=== PATIENT | female | born 2005 | race Hispanic/Latino ===

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

== ENCOUNTER 2024-01-27 17:08 | Emergency (ER) | payer MEDICAID ==
[~2024-01-27] VITALS: Ht 160 cm; Wt 87.5 kg
[~2024-01-27 17:08] MED LIST changes: +POLY17PO4 PO
--- NOTE | 2024-01-27 18:32 | ERN ---
General Chief Complaint: Abdominal Pain Stated Complaint: SOB,LIGHT HEADED,LOWER ABDOMINAL PAIN Time Seen by MD: 17:13 Time Seen by Midlevel: 17:13 Source: patient History of Present Illness Initial Comments Patient is a 19-year-old female with a past medical history of asthma presenting to the emergency department with multiple complaints. She states that for the last three days she has been having shortness for breath along with elevated blood pressure readings at home. In the past she has been told that her blood pressure has been elevated however she was never seen her primary care doctor for this. Her other complaint is his she developed suprapubic abdominal cramping today. Denies dysuria or hematuria. She states her last menstrual cycle was on December 28, 2023 but there is a possibility of . Allergies: Coded Allergies: No Known Drug Allergies (Unverified Allergy, Unknown, 01/04/19) Home Meds Active Scripts Polyethylene Glycol 3350 (Miralax) 17 Gram Powd.pack, 17 GM PO DAILY for 7 Days, #7 PACK Prov:ROMINA SAVAGE MD 12/15/23 Ibuprofen (Ibuprofen) 600 Mg Tablet, 600 MG PO Q6H PRN for PAIN, #30 TAB Prov:ABE FELDER 11/23/23 Cephalexin Monohydrate (Keflex) 500 Mg Cap, 500 MG PO QID for 7 Days, #28 CAP Prov:CRISTAL GUNTER V ELECTRICAL INSTRUMENT TECHNICIAN 11/11/22 Ibuprofen (Ibuprofen) 600 Mg Tablet, 600 MG PO Q8H PRN for PAIN for 10 Days, #30 TAB Prov:NERI ARREOLA MD 06/18/22 D-Methorphan Hb/P-Epd HCl/Bpm (Bromfed Dm Cough Syrup) 118 Ml Syrup, 10 ML PO QID for cough, #120 ML Prov:ADELINE CARRINGTON MD 01/13/22 Ibuprofen (Ibuprofen) 600 Mg Tablet, 600 MG PO Q6H for fever, #30 TAB Prov:ADELINE CARRINGTON MD 01/13/22 Acetaminophen (Acetaminophen) 500 Mg Tablet, 1000 MG PO QID for fever, #50 TAB Prov:ADELINE CARRINGTON MD 01/13/22 Naproxen (Naprosyn) 500 Mg Tablet, 500 MG PO BIDPC for 5 Days, #10 TAB 0 Refills Prov:NEETA SNIDER 11/18/21 Past Medical History Past Medical History: Other Medical History Other: GASTRITIS Past Surgical History: None Social History Social History: Negative, Lives with family Female( History) History: Not Applicable LMP: Dec 23, 2023 : 2 Para: 1 Aborts: 0 ROS Dictation CONSTITUTIONAL: Negative except for HPI HEAD/FACE: Negative except for HPI EENT: Negative except for HPI RESPIRATORY: Negative except for HPI GASTROINTESTINAL/ABDOMINAL: Negative except for HPI GENITOURINARY: Negative except for HPI MUSCULOSKELETAL: Negative except for HPI INTEGUMENTARY: Negative except for HPI NEUROLOGICAL/PSYCH: Negative except for HPI HEMATOLOGIC/LYMPHATIC: Negative except for HPI All Systems Negative, Except as noted above. 13 point review of systems assessed and all negative except for above. Physical Exam Physical Exam Dictation Vital Signs reviewed General Appearance: Alert, oriented x 3, no acute distress, well developed, nourished. Head and Face: non-traumatic. Eyes: PERRL, pink conjunctivas, eyelid no trauma, anterior chamber with arcus senilis. Ears: Pinnas intact and no signs of trauma or erythema ear canals clear and no discharge TM no erythema Nose: No discharge, no bleeding. Oropharynx: Mouth normal, tongue pink, pharynx clear,no erythema, tonsils no exudates, no abscesses noted, mucous membrane moist Neck: Supple, non-tender, no thyromegaly, no masses, no JVD, no bruits Breast:Deferred Chest:No tenderness, no crepitus, no paradoxical movement, no retractions Lungs:Clear, well-ventilated, symmetric, no rales, no wheezing, no rhonchi, no stridor, good breath sounds bilaterally Heart: Regular rate, regular rhythm, no murmur, no gallops Vascular: no peripheral edema, Abdomen: Soft, positive bowel sounds, nondistended, no guarding, nontender, no rebound, no masses no hepatomegaly, no splenomegaly, no Navarro's sign, no hernias. Rectal: Deferred Genital: Deferred Neurological: Normal speech, motor function intact, sensory function intact Musculoskeletal: Neck nontender, full range of motion, back nontender, full range of motion, Extremities: nontender, full range of motion Skin: Color pink, dry, no turgor, no rash, no lacerations, no abrasions, no contusions. Lymphatic: Deferred Results Laboratory and Microbiology Lab and Micro Result Laboratory Tests Test 01/27/24 16:35 01/27/24 19:23 Urine Color LIGHT-YELLOW (YELLOW) Urine Appearance CLEAR (CLEAR) Urine pH 6.0 (5.0-8.0) Urine Specific [place] 1.025 (1.001-1.031) Urine Protein NEGATIVE mg/dL (NEGATIVE) Urine Glucose (UA) NEGATIVE mg/dL (NEGATIVE) Urine Ketones NEGATIVE mg/dL (NEGATIVE) Urine Occult Blood NEGATIVE (NEGATIVE) Urine Nitrate NEGATIVE (NEGATIVE) Urine Bilirubin NEGATIVE mg/dL (NEGATIVE) Urine Urobilinogen 2.0 mg/dL (0.2-1.0) H Urine Leukocyte Esterase NEGATIVE [place]/uL Urine RBC 0-1 /HPF (0-1) Urine WBC 0-1 /HPF (0-1) Urine Squamous Epithelial Cells FEW /HPF (0-2) Urine Bacteria RARE /HPF (None Seen) White Blood Count 9.5 K/uL (4.8-10.8) Red Blood Count 4.89 MIL/uL (4.00-5.50) Hemoglobin 14.1 g/dL (12.0-16.0) Hematocrit 41.8 % (36-48) Mean Corpuscular Volume 85.5 fL (80-100) Mean Corpuscular Hemoglobin 28.8 pg (27.0-33.0) Mean Corpuscular Hemoglobin Concent 33.7 g/dL (32.0-36.0) Red Cell Distribution Width 13.5 % (11.0-15.5) Platelet Count 305 K/uL (130-400) Mean Platelet Volume 10.7 fL (7.5-10.5) H Immature Granulocyte % (Auto) 0.3 % (0-1) Neutrophils (%) (Auto) 62.6 % (40.0-77.0) Lymphocytes (%) (Auto) 29.1 % (21.0-51.0) Monocytes (%) (Auto) 6.3 % (3.0-13.0) Eosinophils (%) (Auto) 1.2 % (0.0-8.0) Basophils (%) (Auto) 0.5 % (0.0-5.0) Neutrophils # (Auto) 6.0 K/uL (1.8-7.7) Lymphocytes # (Auto) 2.8 K/uL (1.0-4.8) Monocytes # (Auto) 0.6 K/uL (0.1-1.0) Eosinophils # (Auto) 0.11 K/uL (0.00-0.70) Basophils # (Auto) 0.05 K/uL (0.00-0.20) Absolute Immature Granulocyte (auto 0.03 K/uL (0-1) Nucleated Red Blood Cells 0.0 % (0.0-0.19) Sodium Level 141 mmol/L (136-145) Potassium Level 4.1 mmol/L (3.5-5.1) Chloride Level 105 mmol/L (101-111) Carbon Dioxide Level 28 mmol/L (21-32) Blood Urea Nitrogen 8 mg/dL (7-18) Creatinine 0.9 mg/dL (0.5-1.0) Glomerular Filtration Rate Calc 94 mL/min (>90) Random Glucose 100 mg/dL (70-105) Total Calcium 8.9 mg/dL (8.5-10.1) Human Chorionic Gonadotropin, Quant 38 mIU/mL (0-5) H Serum Test, Qualitative POSITIVE (NEGATIVE) H Labs Reviewed?: Yes MDM MDM: Patient is a 19-year-old female with a past medical history of asthma presenting to the emergency department with multiple complaints. She states that for the last three days she has been having shortness for breath along with elevated blood pressure readings at home. In the past she has been told that her blood pressure has been elevated however she was never seen her primary care doctor for this. Her other complaint is his she developed suprapubic abdominal cramping today. Denies dysuria or hematuria. She states her last menstrual cycle was on December 28, 2023 but there is a possibility of . On physical examination patient is in no acute distress. Her vital signs are stable. Patient is afebrile and nontoxic appearing. Her abdomen is nontender. Her blood work is stable. HCG quant is 38. Given that we had a positive test a pelvic ultrasound was performed which reveals no intrauterine gestation however, I believe this is due to an early . There is a small amount of trace fluid in the cul-de-sac. This may be nonspecific or may be related to an early ectopic however on physical examination patient is not having any vaginal bleeding or abdominal pain. I discussed at length with the patient the results of her blood work and her ultrasound. I advised that she needs to follow up with an OBGYN in the next 24-48 hours. Patient states that she was able to follow up with her OBGYN tomorrow. I advised that if she were to develop any abdominal pain or vaginal bleeding she was to return to the ER for further evaluation. A copy of her ultrasound report was provided to the patient. Differential diagnosis: 1st trimester , electrolyte abnormality, dehydration There are no social concerns with this patient. Prescription drug management Prescriptions will include: None Medical management and examination interpretation discussions were had by me with other qualified healthcare professionals as indicated for the patient's care. ED Course Orders Procedure Category Date Status Time Cbc With Differential LAB 01/27/24 Complete 17:36 Basic Metabolic Panel LAB 01/27/24 Complete 17:36 Testing, LAB 01/27/24 Complete Serum Hcg 17:36 Urinalysis Profile LAB 01/27/24 Complete 17:36 Hcg,Quantitative LAB 01/27/24 Complete 19:48 Us Ob <14 Weeks US 01/27/24 Resulted 19:48 Vital Signs Date Time Temp Pulse Resp B/P (MAP) Pulse Ox O2 Delivery O2 Flow Rate FiO2 01/27/24 18:36 98.8 92 18 142/88 99 Room Air* 0 21 01/27/24 17:52 99.1 106 20 157/92 99 [place] [address] IMAGING REPORT Signed PATIENT: ROB CLEMONS MR#: [id number] : 2005 SEX: F AGE: 19 LOCATION: [facility] ORDER 48 STATUS: REG ER REPORT#: [id number] SERVICE 47 REASON: positive test ORDERING PHYSICIAN: BILLY CLEMONS PROCEDURE: OB <14 - US OB <14 WEEKS US OB <14 WEEKS HISTORY: positive test COMPARISON: None FINDINGS: Uterus measures 6.9 cm length with a 1.5 mm endometrial thickness. There is no identified intrauterine gestation. The ovaries are unremarkable in size and echogenicity and vascularity. There is a trace of free fluid in the cul-de-sac. IMPRESSION: There is no identified intrauterine gestation in this patient with positive test. DICTATED BY: BELLA BISHOP DO DATE: 01/27/242145 ELECTRONICALLY SIGNED BY: BELLA BISHOP DO DATE: 01/27/242148 DX & DISP Disposition: Discharge Departure Impression: Primary Impression: Positive test Condition: Stable Additional Instructions: Your blood work today is unremarkable. You had a positive test today in the emergency department. Your hCG quant is softly positive at 38. A pelvic ultrasound was performed which shows no identified intrauterine gestation. This most likely represents an early . However, your ultrasound also showed a trace amount of free fluid in the cul-de-sac. This can be nonspecific but may also represent an ectopic . You will need to follow up with an OBGYN in the next 24-48 hours. You will need a repeat hCG and a repeat ultrasound. If you develop sharp abdominal pain, heavy vaginal bleeding, or any new or worsening symptoms you need to report to the emergency department for further evaluation. Schedule a follow up with your OB as soon as possible. Referrals: SELF,REFERRAL (PCP) Time of Disposition: 22:08 I have reviewed the case, and I agree with, Diagnosis and Plan I performed the substantive portion of the visit. I have reviewed and personally made and approve the management plan that is documented in the note by myself or the MCKENNA. I acknowledge for responsibility for the patient's management plan. BILLY CLEMONS Jan 27, 2024 18:32
[2024-01-27 18:47] LABS: APPEARANCE,URINE CLEAR (CLEAR); BILIRUBIN,URINE NEGATIVE (NEGATIVE); COLOR,URINE LIGHT-YELLOW (YELLOW); GLUCOSE, URINE (UA) NEGATIVE (NEGATIVE); KETONES,URINE NEGATIVE (NEGATIVE); LEUKOCYTE ESTERASE ,URINE NEGATIVE Leu/uL (NEGATIVE); NITRATE,URINE NEGATIVE (NEGATIVE); OCCULT BLOOD,URINE NEGATIVE (NEGATIVE); PROTEIN,URINE NEGATIVE (NEGATIVE)
[2024-01-27 18:49] LABS: ADD UA MICROSCOPIC YES
[2024-01-27 18:50] LABS: BACTERIA,URINE RARE /HPF (None Seen); MUCUS,URINE RARE LPF (None Seen); RBC,URINE 0-1 /HPF (0-1); SQUAMOUS EPITHELIAL CELL,UR FEW /HPF (0-2); WBC,URINE 0-1 /HPF (0-1)
[2024-01-27 19:29] LABS: BASOPHILS # (AUTO) 0.05 K/uL (0.00-0.20); BASOPHILS % (AUTO) 0.5 % (0.0-5.0); EOSINOPHILS # (AUTO) 0.11 K/uL (0.00-0.70); EOSINOPHILS % (AUTO) 1.2 % (0.0-8.0); HEMATOCRIT 41.8 % (36-48); IMMATURE GRANULOCYTE ABSOLUTE 0.03 K/uL (0-1); LYMPHOCYTES # (AUTO) 2.8 K/uL (1.0-4.8); LYMPHOCYTES % (AUTO) 29.1 % (21.0-51.0); MEAN CORPUSCULAR HEMOGLOBIN 28.8 pg (27.0-33.0); MEAN CORPUSCULAR HGB CONC 33.7 g/dL (32.0-36.0); MEAN CORPUSCULAR VOLUME 85.5 fL (80-100); MONOCYTES # (AUTO) 0.6 K/uL (0.1-1.0); MONOCYTES % (AUTO) 6.3 % (3.0-13.0); NEUTROPHILS % (AUTO) 62.6 % (40.0-77.0); PLATELET COUNT (AUTO) 305 K/uL (130-400); RED BLOOD CELL COUNT(AUTO) 4.89 MIL/uL (4.00-5.50); RED CELL DISTRIBUTION WIDTH 13.5 % (11.0-15.5); WHITE BLOOD COUNT (AUTO) 9.5 K/uL (4.8-10.8)
[2024-01-27 19:40] LABS: CREATININE 0.9 mg/dL (0.5-1.0); POTASSIUM 4.1 mmol/L (3.5-5.1)
--- NOTE | 2024-01-27 21:49 | HMCIMG ---
US OB <14 WEEKS HISTORY: positive test COMPARISON: None FINDINGS: Uterus measures 6.9 cm length with a 1.5 mm endometrial thickness. There is no identified intrauterine gestation. The ovaries are unremarkable in size and echogenicity and vascularity. There is a trace of free fluid in the cul-de-sac. IMPRESSION: There is no identified intrauterine gestation in this patient with positive test.
[2024-01-27 22:22] VITALS: BP 138/80; PULSE 88; RESP 18; TEMP 98.8; O2SAT 99
== END 2024-01-27 22:25 | disposition home or self-care (01) ==
LOC: EDH 17:08
DX: Z32.01 Encounter for pregnancy test, result positive (principal); J45.909 Unspecified asthma, uncomplicated; R10.2 Pelvic and perineal pain; Z79.899 Other long term (current) drug therapy
CPT/HCPCS: 36415; 76801; 80048; 81001; 84702; 84703; 85025; 99284

== ENCOUNTER 2024-01-29 20:20 | Emergency (ER) | payer MEDICAID ==
[~2024-01-29] VITALS: Ht 160 cm; Wt 86.7 kg
--- NOTE | 2024-01-29 20:22 | NUR ---
REPORT TO LUPE SANCHEZ
--- NOTE | 2024-01-29 20:24 | NUR ---
UA CUP PROVIDED
--- NOTE | 2024-01-29 20:44 | ERN ---
ED Note History of Present Illness Stated Complaint: ABD PAIN, UA PAIN Chief Complaint: Abdominal Pain in Time Seen by MD: 20:22 Time Seen by Midlevel: 20:22 Dictation: The patient is a 19-year-old female with no known medical history who presents to the emergency department with complaints of left lower abdominal pain onset four days ago associated with nausea. Patient reports she is but unsure how many weeks. Reports last menstrual period was 12/28/2023. Patient denies any vaginal bleeding or discharge, denies fevers, vomiting, urinary discomfort. Patient reports she was seen here two days ago and was discharged but continues with the discomfort. . Patient of Dr. Lancaster Allergies: Coded Allergies: No Known Drug Allergies (Unverified Allergy, Unknown, 01/04/19) Home Meds Active Scripts Polyethylene Glycol 3350 (Miralax) 17 Gram Powd.pack, 17 GM PO DAILY for 7 Days, #7 PACK Prov:ROMINA SAVAGE MD 12/15/23 Ibuprofen (Ibuprofen) 600 Mg Tablet, 600 MG PO Q6H PRN for PAIN, #30 TAB Prov:ABE FELDER 11/23/23 Cephalexin Monohydrate (Keflex) 500 Mg Cap, 500 MG PO QID for 7 Days, #28 CAP Prov:CRISTAL GUNTER 11/11/22 Ibuprofen (Ibuprofen) 600 Mg Tablet, 600 MG PO Q8H PRN for PAIN for 10 Days, #30 TAB Prov:NERI ARREOLA MD 06/18/22 D-Methorphan Hb/P-Epd HCl/Bpm (Bromfed Dm Cough Syrup) 118 Ml Syrup, 10 ML PO QID for cough, #120 ML Prov:ADELINE CARRINGTON MD 01/13/22 Ibuprofen (Ibuprofen) 600 Mg Tablet, 600 MG PO Q6H for fever, #30 TAB Prov:ADELINE CARRINGTON MD 01/13/22 Acetaminophen (Acetaminophen) 500 Mg Tablet, 1000 MG PO QID for fever, #50 TAB Prov:ADELINE CARRINGTON MD 01/13/22 Naproxen (Naprosyn) 500 Mg Tablet, 500 MG PO BIDPC for 5 Days, #10 TAB 0 Refills Prov:NEETA SNIDER 11/18/21 Past Medical History Past Medical History: Other Additional Past Medical Hx: GASTRITIS Surgical History: None Social History: Negative, Lives with family History: Not Applicable LMP: Dec 28, 2023 : 2 Para: 1 Aborts: 0 RN Note Reviewed/Agreed w/PFSH: Yes Review of System Dictation Constitutional: Negative for fever,chills, and weight loss Eyes: Negative for injury, pain,redness, and discharge ENT: Negative for injury,pain or swelling Cardiovascular: Negative for chest pain, palpitations, and edema Respiratory: Negative for shortness of breath, cough, and wheezing, Abdomen/GI: Negative for vomiting, diarrhea, and constipation. Positive for lower abdominal pain, nausea Back: Negative for injury and pain : Negative for injury, bleeding and discharge MS/Extremity: Negative for injury and deformity Skin: Negative for rash, and discoloration Neuro: Negative for headache, weakness, numbness, tingling, and seizure Psych: Negative for suicide ideation, homicidal ideation, and hallucinations Initial Vital Sign VS Vital Signs Date Time Temp Pulse Resp B/P (MAP) Pulse Ox O2 Delivery O2 Flow Rate FiO2 01/29/24 20:21 97.5 93 20 143/93 100 Room Air 01/29/24 20:53 0 21 Physical Exam Dictation Vital Signs reviewed General Appearance: Alert, oriented x 3, no acute distress, well developed, nourished. Head and Face: non-traumatic. Eyes: PERRL, pink conjunctivas, eyelid no trauma, anterior chamber with arcus senilis. Ears: Pinnas intact and no signs of trauma or erythema ear canals clear and no discharge TM no erythema Nose: No discharge, no bleeding. Oropharynx: Mouth normal, tongue pink. pharynx clear,no erythema, tonsils no exudates, no abscesses noted, mucous membrane moist Neck: Supple, non-tender, no thyromegaly, no masses, no JVD, no bruits Breast:Deferred Chest:No tenderness, no crepitus, no paradoxical movement, no retractions Lungs:Clear, well-ventilated, symmetric, no rales, no wheezing, no rhonchi, no stridor, good breath sounds bilaterally Heart: Regular rate, regular rhythm, no murmur, no gallops Vascular: no peripheral edema, Abdomen: Soft, positive bowel sounds, nondistended, no guarding, nontender, no rebound, no masses no hepatomegaly, no splenomegaly, no Navarro's sign, no hernias. Rectal: Deferred Genital: Deferred Neurological: Normal speech, motor function intact, sensory function intact Musculoskeletal: Neck nontender, full range of motion, back nontender, full range of motion, Extremities: nontender, full range of motion Skin: Color pink, dry, no turgor, no rash, no lacerations, no abrasions, no contusions. Lymphatic: Deferred Results (Laboratory/Radiology) Laboratory/Radiology Laboratory Tests Test 01/29/24 20:40 01/29/24 20:42 Urine Color LIGHT-YELLOW (YELLOW) Urine Appearance CLOUDY (CLEAR) H Urine pH 6.0 (5.0-8.0) Urine Specific [place] 1.017 (1.001-1.031) Urine Protein NEGATIVE mg/dL (NEGATIVE) Urine Glucose (UA) NEGATIVE mg/dL (NEGATIVE) Urine Ketones NEGATIVE mg/dL (NEGATIVE) Urine Occult Blood NEGATIVE (NEGATIVE) Urine Nitrate NEGATIVE (NEGATIVE) Urine Bilirubin NEGATIVE mg/dL (NEGATIVE) Urine Urobilinogen 0.2 mg/dL (0.2-1.0) Urine Leukocyte Esterase NEGATIVE [place]/uL Urine RBC 0-1 /HPF (0-1) Urine WBC 2-5 /HPF (0-1) H Urine Squamous Epithelial Cells MANY /HPF (0-2) Urine Bacteria None /HPF (None Seen) White Blood Count 9.6 K/uL (4.8-10.8) Red Blood Count 4.99 MIL/uL (4.00-5.50) Hemoglobin 14.4 g/dL (12.0-16.0) Hematocrit 42.9 % (36-48) Mean Corpuscular Volume 86.0 fL (80-100) Mean Corpuscular Hemoglobin 28.9 pg (27.0-33.0) Mean Corpuscular Hemoglobin Concent 33.6 g/dL (32.0-36.0) Red Cell Distribution Width 13.4 % (11.0-15.5) Platelet Count 301 K/uL (130-400) Mean Platelet Volume 10.7 fL (7.5-10.5) H Immature Granulocyte % (Auto) 0.2 % (0-1) Neutrophils (%) (Auto) 58.0 % (40.0-77.0) Lymphocytes (%) (Auto) 33.1 % (21.0-51.0) Monocytes (%) (Auto) 7.3 % (3.0-13.0) Eosinophils (%) (Auto) 0.9 % (0.0-8.0) Basophils (%) (Auto) 0.5 % (0.0-5.0) Neutrophils # (Auto) 5.6 K/uL (1.8-7.7) Lymphocytes # (Auto) 3.2 K/uL (1.0-4.8) Monocytes # (Auto) 0.7 K/uL (0.1-1.0) Eosinophils # (Auto) 0.09 K/uL (0.00-0.70) Basophils # (Auto) 0.05 K/uL (0.00-0.20) Absolute Immature Granulocyte (auto 0.02 K/uL (0-1) Nucleated Red Blood Cells 0.0 % (0.0-0.19) Sodium Level 137 mmol/L (136-145) Potassium Level 3.7 mmol/L (3.5-5.1) Chloride Level 101 mmol/L (101-111) Carbon Dioxide Level 26 mmol/L (21-32) Blood Urea Nitrogen 7 mg/dL (7-18) Creatinine 0.8 mg/dL (0.5-1.0) Glomerular Filtration Rate Calc 108 mL/min (>90) Random Glucose 85 mg/dL (70-105) Total Calcium 9.1 mg/dL (8.5-10.1) Human Chorionic Gonadotropin, Quant 129 mIU/mL (0-5) H REASON: R/O ECTOPIC . PAIN LEFT LOWER QUADRANT ORDERING PHYSICIAN: JUDITH GOLD MD PROCEDURE: OB <14 - US OB <14 WEEKS US OB <14 WEEKS HISTORY: PAIN LEFT LOWER QUADRANT COMPARISON: None FINDINGS: There is a anteverted uterus that measures 8.6 cm length with a 8 mm endometrial thickness. There is no identified intrauterine gestation. The ovaries are unremarkable in size and echogenicity and vascularity. There are no abnormal Mass or free fluid. IMPRESSION: Anteverted uterus. Study is otherwise unremarkable. There is no identified intrauterine gestation. Labs Reviewed?: Yes ED Course ED Course Orders Procedure Category Date Status Time Cbc With Differential LAB 01/29/24 Complete 20:27 Basic Metabolic Panel LAB 01/29/24 Complete 20:27 Hcg,Quantitative LAB 01/29/24 Complete 20:27 Us Ob <14 Weeks US 01/29/24 Resulted 20:27 Urinalysis Profile LAB 01/29/24 Complete 20:29 0.9%Nacl 1000ml (Ns PHA 01/29/24 Complete 1000ml) 20:30 Ondansetron 4mg Inj PHA 01/29/24 Complete (Zofran 4mg Inj) 20:30 Acetaminophen 500mg PHA 01/29/24 Complete Tab (Tylenol 500mg T 20:30 Type And Screen BBK 01/29/24 Complete 20:38 Current Medications Medications (Trade) Dose Ordered Sig/Harper Route PRN Reason Start Time Stop Time Status Last Admin Dose Admin Acetaminophen (TYLenol 500MG TAB) 1,000 mg ONCE ONCE PO 01/29/24 20:30 01/29/24 20:31 DC 01/29/24 20:46 Ondansetron HCl (zoFRAN 4MG INJ) 4 mg ONCE ONCE IVP 01/29/24 20:30 01/29/24 20:31 DC 01/29/24 20:46 Sodium Chloride 1,000 ml @ 0 mls/hr ONCE ONCE IV 01/29/24 20:30 01/29/24 20:31 DC 01/29/24 20:46 Vital Signs Date Time Temp Pulse Resp B/P (MAP) Pulse Ox O2 Delivery O2 Flow Rate FiO2 01/29/24 21:23 76 16 144/72 98 Room Air* 0 21 01/29/24 20:53 98.8 75 20 155/96 98 Room Air* 0 21 01/29/24 20:21 97.5 93 20 143/93 100 Room Air Medical Decision Making MDM The patient is a 19-year-old female with no known medical history who presents to the emergency department with complaints of left lower abdominal pain onset four days ago associated with nausea. Patient reports she is but unsure how many weeks. Reports last menstrual period was 12/28/2023. Patient denies any vaginal bleeding or discharge, denies fevers, vomiting, urinary discomfort. Patient reports she was seen here two days ago and was discharged but continues with the discomfort. . Patient of Dr. Lancaster Differential diagnosis: , urinary tract infection, abdominal pain in , electrolyte imbalance, ectopic CBC showed no leukocytosis, no anemia, no electrolyte imbalance, normal renal function, HCG 129 trending up, urinalysis unremarkable. Ob ultrasound revealed anteverted uterus, no identified intrauterine gestation. Might be due to early . Patient continues in no distress. No vaginal bleeding. Patient instructed to follow up with Dr. Lancaster Reports she has an appointment next week. Advised patient to call to make a sooner appointment. Need for hospitalization: Patient does not meet criteria for hospitalization. There are no social concerns with this patient. DX & DISP Disposition: Discharge Departure Impression: Primary Impression: Abdominal pain Additional Impression: Positive test Condition: Stable Additional Instructions: Please follow up with as soon as possible. Please return to ER if symptoms worsen FOLLOW-UP WITH PRIMARY CARE PROVIDER IN 1 TO 2 DAYS. TAKE MEDICATIONS DIRECTED HERE IN THE EMERGENCY ROOM. OKAY TO CONTINUE HOME MEDICATIONS UNLESS OTHERWISE DISCUSSED DURING YOUR VISIT IN THE EMERGENCY ROOM TODAY. RETURN TO YOUR NEAREST EMERGENCY ROOM IF SYMPTOMS WORSEN OR IF THERE IS NO IMPROVEMENT. CALL 911 IF YOU NEED IMMEDIATE ASSISTANCE. TAKE TYLENOL [id number] NEEDED AND IF NO CONTRAINDICATIONS ARE PRESENT. INCREASE ORAL HYDRATION. A WOUND CULTURE OR URINE CULTURE WAS ORDERED HERE IN THE EMERGENCY ROOM DEPARTMENT PLEASE FOLLOW-UP WITH PRIMARY CARE PROVIDER AND ADVISE THEM TO GET REPEAT PORTS FROM OUR FACILITY. IF YOU HAD ANY JENNIFER WRAP/SPLINTS THAT WERE APPLIED HERE, PLEASE DO NOT REMOVE THEM UNTIL YOU SEE YOUR PRIMARY CARE OR SPECIALTY. Referrals: SELF,REFERRAL (PCP) Time of Disposition: 21:45 I have reviewed the case, and I agree with, Diagnosis and Plan YOLETTE PEÑAP Jan 29, 2024 20:44
[2024-01-29] MEDS: ondanSETRON 4MG INJ IVP ONE (20:46)
[2024-01-29] MEDS: acetaMINOPHEN 500 MG TABLET PO ONE (20:46)
[2024-01-29] MEDS: 0.9%NACL 1000ML 1,000 ML IV ONE (20:46)
[2024-01-29 20:50] LABS: BASOPHILS # (AUTO) 0.05 K/uL (0.00-0.20); BASOPHILS % (AUTO) 0.5 % (0.0-5.0); EOSINOPHILS # (AUTO) 0.09 K/uL (0.00-0.70); EOSINOPHILS % (AUTO) 0.9 % (0.0-8.0); HEMATOCRIT 42.9 % (36-48); IMMATURE GRANULOCYTE ABSOLUTE 0.02 K/uL (0-1); LYMPHOCYTES # (AUTO) 3.2 K/uL (1.0-4.8); LYMPHOCYTES % (AUTO) 33.1 % (21.0-51.0); MEAN CORPUSCULAR HEMOGLOBIN 28.9 pg (27.0-33.0); MEAN CORPUSCULAR HGB CONC 33.6 g/dL (32.0-36.0); MONOCYTES # (AUTO) 0.7 K/uL (0.1-1.0); MONOCYTES % (AUTO) 7.3 % (3.0-13.0); NEUTROPHILS # (AUTO) 5.6 K/uL (1.8-7.7); PLATELET COUNT (AUTO) 301 K/uL (130-400); RED BLOOD CELL COUNT(AUTO) 4.99 MIL/uL (4.00-5.50); RED CELL DISTRIBUTION WIDTH 13.4 % (11.0-15.5); WHITE BLOOD COUNT (AUTO) 9.6 K/uL (4.8-10.8)
[2024-01-29 20:53] VITALS: TEMP 98.8
[2024-01-29 20:58] LABS: CREATININE 0.8 mg/dL (0.5-1.0); POTASSIUM 3.7 mmol/L (3.5-5.1)
[2024-01-29 21:00] LABS: ADD UA MICROSCOPIC YES; APPEARANCE,URINE CLOUDY (CLEAR); BILIRUBIN,URINE NEGATIVE (NEGATIVE); COLOR,URINE LIGHT-YELLOW (YELLOW); GLUCOSE, URINE (UA) NEGATIVE (NEGATIVE); KETONES,URINE NEGATIVE (NEGATIVE); LEUKOCYTE ESTERASE ,URINE NEGATIVE Leu/uL (NEGATIVE); NITRATE,URINE NEGATIVE (NEGATIVE); OCCULT BLOOD,URINE NEGATIVE (NEGATIVE); PROTEIN,URINE NEGATIVE (NEGATIVE); UROBILINOGEN,URINE 0.2 mg/dL (0.2-1.0)
[2024-01-29 21:09] LABS: MUCUS,URINE RARE LPF (None Seen); RBC,URINE 0-1 /HPF (0-1); SQUAMOUS EPITHELIAL CELL,UR MANY /HPF (0-2)
[2024-01-29 21:23] VITALS: BP 144/72; PULSE 76; RESP 16; O2SAT 98
--- NOTE | 2024-01-29 21:29 | HMCIMG ---
US OB <14 WEEKS HISTORY: PAIN LEFT LOWER QUADRANT COMPARISON: None FINDINGS: There is a anteverted uterus that measures 8.6 cm length with a 8 mm endometrial thickness. There is no identified intrauterine gestation. The ovaries are unremarkable in size and echogenicity and vascularity. There are no abnormal Mass or free fluid. IMPRESSION: Anteverted uterus. Study is otherwise unremarkable. There is no identified intrauterine gestation.
== END 2024-01-29 22:02 | disposition home or self-care (01) ==
LOC: EDH 20:20
DX: O26.891 Other specified pregnancy related conditions, first trimester (principal); R10.30 Lower abdominal pain, unspecified; R10.2 Pelvic and perineal pain; Z3A.00 Weeks of gestation of pregnancy not specified
CPT/HCPCS: 99285; 96374; 76801; 96361; 80048; 84702; 85025; 86850; 86900; 86901; 81001; 36415; J7030; J2405

== ENCOUNTER 2024-02-03 20:15 | Emergency (ER) | payer MEDICAID ==
[~2024-02-03] VITALS: Ht 160 cm; Wt 88.5 kg
[2024-02-03 20:32] LABS: ADD UA MICROSCOPIC YES; APPEARANCE,URINE CLOUDY (CLEAR); BILIRUBIN,URINE NEGATIVE (NEGATIVE); COLOR,URINE LIGHT-YELLOW (YELLOW); GLUCOSE, URINE (UA) NEGATIVE (NEGATIVE); KETONES,URINE NEGATIVE (NEGATIVE); LEUKOCYTE ESTERASE ,URINE NEGATIVE Leu/uL (NEGATIVE); NITRATE,URINE NEGATIVE (NEGATIVE); OCCULT BLOOD,URINE NEGATIVE (NEGATIVE); PROTEIN,URINE NEGATIVE (NEGATIVE); UROBILINOGEN,URINE 0.2 mg/dL (0.2-1.0)
[2024-02-03 20:35] LABS: BACTERIA,URINE RARE /HPF (None Seen); MUCUS,URINE RARE LPF (None Seen); SQUAMOUS EPITHELIAL CELL,UR MOD /HPF (0-2); YEAST,URINE BUDDING RARE /HPF (None Seen)
[2024-02-03 20:42] LABS: BASOPHILS # (AUTO) 0.05 K/uL (0.00-0.20); BASOPHILS % (AUTO) 0.6 % (0.0-5.0); EOSINOPHILS # (AUTO) 0.09 K/uL (0.00-0.70); EOSINOPHILS % (AUTO) 1.1 % (0.0-8.0); HEMATOCRIT 40.3 % (36-48); IMMATURE GRANULOCYTE ABSOLUTE 0.02 K/uL (0-1); LYMPHOCYTES # (AUTO) 2.8 K/uL (1.0-4.8); LYMPHOCYTES % (AUTO) 32.9 % (21.0-51.0); MEAN CORPUSCULAR HEMOGLOBIN 28.7 pg (27.0-33.0); MEAN CORPUSCULAR HGB CONC 33.7 g/dL (32.0-36.0); MONOCYTES # (AUTO) 0.6 K/uL (0.1-1.0); MONOCYTES % (AUTO) 7.1 % (3.0-13.0); NEUTROPHILS # (AUTO) 4.9 K/uL (1.8-7.7); NEUTROPHILS % (AUTO) 58.1 % (40.0-77.0); PLATELET COUNT (AUTO) 297 K/uL (130-400); RED BLOOD CELL COUNT(AUTO) 4.74 MIL/uL (4.00-5.50); RED CELL DISTRIBUTION WIDTH 13.5 % (11.0-15.5); WHITE BLOOD COUNT (AUTO) 8.4 K/uL (4.8-10.8)
[2024-02-03] MEDS: 0.9%NACL 1000ML 1,000 ML IV ONE (20:44)
[2024-02-03] MEDS: acetaMINOPHEN 500 MG TABLET PO ONE (20:50)
[2024-02-03 20:52] LABS: CREATININE 0.9 mg/dL (0.5-1.0); POTASSIUM 3.6 mmol/L (3.5-5.1)
--- NOTE | 2024-02-03 21:32 | ERN ---
ED Note History of Present Illness Stated Complaint: ABDOMINAL PAIN Chief Complaint: Abdominal Pain Time Seen by MD: 20:22 Time Seen by Midlevel: 20:22 Dictation: The patient is a 19-year-old female with no past medical history who presents to the emergency department with suprapubic abdominal pain that is worse on the left side onset today. Patient reports some nausea but no vomiting, diarrhea, fevers, urinary discomfort, constipation. Patient reports possibility of . Last menstrual period was 12/28/2023. patient of Dr. Lancaster . Patient denies any vaginal bleeding or discharge. Reports 1st appointment with [address]. Lancaster on Wednesday. Allergies: Coded Allergies: No Known Drug Allergies (Unverified Allergy, Unknown, 01/04/19) Home Meds Active Scripts Polyethylene Glycol 3350 (Miralax) 17 Gram Powd.pack, 17 GM PO DAILY for 7 Days, #7 PACK Prov:ROMINA SAVAGE MD 12/15/23 Ibuprofen (Ibuprofen) 600 Mg Tablet, 600 MG PO Q6H PRN for PAIN, #30 TAB Prov:ABE FELDER 11/23/23 Cephalexin Monohydrate (Keflex) 500 Mg Cap, 500 MG PO QID for 7 Days, #28 CAP Prov:CRISTAL GUNTERP 11/11/22 Ibuprofen (Ibuprofen) 600 Mg Tablet, 600 MG PO Q8H PRN for PAIN for 10 Days, #30 TAB Prov:NERI ARREOLA MD 06/18/22 D-Methorphan Hb/P-Epd HCl/Bpm (Bromfed Dm Cough Syrup) 118 Ml Syrup, 10 ML PO QID for cough, #120 ML Prov:ADELINE CARRINGTON MD 01/13/22 Ibuprofen (Ibuprofen) 600 Mg Tablet, 600 MG PO Q6H for fever, #30 TAB Prov:ADELINE CARRINGTON MD 01/13/22 Acetaminophen (Acetaminophen) 500 Mg Tablet, 1000 MG PO QID for fever, #50 TAB Prov:ADELINE CARRINGTON MD 01/13/22 Naproxen (Naprosyn) 500 Mg Tablet, 500 MG PO BIDPC for 5 Days, #10 TAB 0 Refills Prov:NEETA SNIDERP 11/18/21 Past Medical History Past Medical History: Asthma Additional Past Medical Hx: GASTRITIS Surgical History: None Social History: Negative, Lives with family History: Not Applicable LMP: Dec 28, 2023 : 2 Para: 1 Aborts: 0 RN Note Reviewed/Agreed w/PFSH: Yes Review of System Dictation Constitutional: Negative for fever,chills, and weight loss Eyes: Negative for injury, pain,redness, and discharge ENT: Negative for injury,pain or swelling Cardiovascular: Negative for chest pain, palpitations, and edema Respiratory: Negative for shortness of breath, cough, and wheezing, Abdomen/GI: Negative for vomiting, diarrhea, and constipation positive for abdominal pain, nausea Back: Negative for injury and pain : Negative for injury, bleeding and discharge MS/Extremity: Negative for injury and deformity Skin: Negative for rash, and discoloration Neuro: Negative for headache, weakness, numbness, tingling, and seizure Psych: Negative for suicide ideation, homicidal ideation, and hallucinations Initial Vital Sign VS Vital Signs Date Time Temp Pulse Resp B/P (MAP) Pulse Ox O2 Delivery O2 Flow Rate FiO2 02/03/24 20:19 99.0 93 20 146/106 99 Room Air Physical Exam Dictation Vital Signs reviewed General Appearance: Alert, oriented x 3, no acute distress, well developed, nourished. Head and Face: non-traumatic. Eyes: PERRL, pink conjunctivas, eyelid no trauma, anterior chamber with arcus senilis. Ears: Pinnas intact and no signs of trauma or erythema ear canals clear and no discharge TM no erythema Nose: No discharge, no bleeding. Oropharynx: Mouth normal, tongue pink. pharynx clear,no erythema, tonsils no exudates, no abscesses noted, mucous membrane moist Neck: Supple, non-tender, no thyromegaly, no masses, no JVD, no bruits Breast:Deferred Chest:No tenderness, no crepitus, no paradoxical movement, no retractions Lungs:Clear, well-ventilated, symmetric, no rales, no wheezing, no rhonchi, no stridor, good breath sounds bilaterally Heart: Regular rate, regular rhythm, no murmur, no gallops Vascular: no peripheral edema, Abdomen: Soft, positive bowel sounds, nondistended, no guarding, nontender, no rebound, no masses no hepatomegaly, no splenomegaly, no Navarro's s ign, no hernias. Rectal: Deferred Genital: Deferred Neurological: Normal speech, motor function intact, sensory function intact Musculoskeletal: Neck nontender, full range of motion, back nontender, full range of motion, Extremities: nontender, full range of motion Skin: Color pink, dry, no turgor, no rash, no lacerations, no abrasions, no contusions. Lymphatic: Deferred Results (Laboratory/Radiology) Laboratory/Radiology Laboratory Tests Test 02/03/24 20:25 02/03/24 20:34 Urine Color LIGHT-YELLOW (YELLOW) Urine Appearance CLOUDY (CLEAR) H Urine pH 6.0 (5.0-8.0) Urine Specific [place] 1.026 (1.001-1.031) Urine Protein NEGATIVE mg/dL (NEGATIVE) Urine Glucose (UA) NEGATIVE mg/dL (NEGATIVE) Urine Ketones NEGATIVE mg/dL (NEGATIVE) Urine Occult Blood NEGATIVE (NEGATIVE) Urine Nitrate NEGATIVE (NEGATIVE) Urine Bilirubin NEGATIVE mg/dL (NEGATIVE) Urine Urobilinogen 0.2 mg/dL (0.2-1.0) Urine Leukocyte Esterase NEGATIVE [place]/uL Urine RBC 2-5 /HPF (0-1) H Urine WBC 2-5 /HPF (0-1) H Urine Squamous Epithelial Cells MOD /HPF (0-2) Urine Bacteria RARE /HPF (None Seen) Urine Yeast RARE /HPF (None Seen) White Blood Count 8.4 K/uL (4.8-10.8) Red Blood Count 4.74 MIL/uL (4.00-5.50) Hemoglobin 13.6 g/dL (12.0-16.0) Hematocrit 40.3 % (36-48) Mean Corpuscular Volume 85.0 fL (80-100) Mean Corpuscular Hemoglobin 28.7 pg (27.0-33.0) Mean Corpuscular Hemoglobin Concent 33.7 g/dL (32.0-36.0) Red Cell Distribution Width 13.5 % (11.0-15.5) Platelet Count 297 K/uL (130-400) Mean Platelet Volume 10.9 fL (7.5-10.5) H Immature Granulocyte % (Auto) 0.2 % (0-1) Neutrophils (%) (Auto) 58.1 % (40.0-77.0) Lymphocytes (%) (Auto) 32.9 % (21.0-51.0) Monocytes (%) (Auto) 7.1 % (3.0-13.0) Eosinophils (%) (Auto) 1.1 % (0.0-8.0) Basophils (%) (Auto) 0.6 % (0.0-5.0) Neutrophils # (Auto) 4.9 K/uL (1.8-7.7) Lymphocytes # (Auto) 2.8 K/uL (1.0-4.8) Monocytes # (Auto) 0.6 K/uL (0.1-1.0) Eosinophils # (Auto) 0.09 K/uL (0.00-0.70) Basophils # (Auto) 0.05 K/uL (0.00-0.20) Absolute Immature Granulocyte (auto 0.02 K/uL (0-1) Nucleated Red Blood Cells 0.0 % (0.0-0.19) Sodium Level 139 mmol/L (136-145) Potassium Level 3.6 mmol/L (3.5-5.1) Chloride Level 102 mmol/L (101-111) Carbon Dioxide Level 28 mmol/L (21-32) Blood Urea Nitrogen 11 mg/dL (7-18) Creatinine 0.9 mg/dL (0.5-1.0) Glomerular Filtration Rate Calc 94 mL/min (>90) Random Glucose 94 mg/dL (70-105) Total Calcium 9.1 mg/dL (8.5-10.1) Lipase 27 U/L (16-77) Human Chorionic Gonadotropin, Quant 1159 mIU/mL (0-5) H Labs Reviewed?: Yes ED Course ED Course Orders Procedure Category Date Status Time Vital Signs Per CPOE 02/03/24 Transmitted Routine 20:24 Saline Lock Iv CPOE 02/03/24 Transmitted 20:24 Cbc With Differential LAB 02/03/24 Complete 20:24 Lipase LAB 02/03/24 Complete 20:24 Urinalysis Profile LAB 02/03/24 Complete 20:24 Basic Metabolic Panel LAB 02/03/24 Complete 20:24 Hcg,Quantitative LAB 02/03/24 Complete 20:34 Us Ob <14 Weeks US 02/03/24 Resulted 20:34 0.9%Nacl 1000ml (Ns PHA 02/03/24 Complete 1000ml) 21:00 Acetaminophen 500mg PHA 02/03/24 Complete Tab (Tylenol 500mg T 21:00 Current Medications Medications (Trade) Dose Ordered Sig/Harper Route PRN Reason Start Time Stop Time Status Last Admin Dose Admin Acetaminophen (TYLenol 500MG TAB) 1,000 mg ONCE ONCE PO 02/03/24 21:00 02/03/24 21:01 DC 02/03/24 20:50 Sodium Chloride 1,000 ml @ 0 mls/hr ONCE ONCE IV 02/03/24 21:00 02/03/24 21:01 DC 02/03/24 20:44 Vital Signs Date Time Temp Pulse Resp B/P (MAP) Pulse Ox O2 Delivery O2 Flow Rate FiO2 02/03/24 20:19 99.0 93 20 146/106 99 Room Air Medical Decision Making MDM The patient is a 19-year-old female with no past medical history who presents to the emergency department with suprapubic abdominal pain that is worse on the left side onset today. Patient reports some nausea but no vomiting, diarrhea, fevers, urinary discomfort, constipation. Patient reports possibility of . Last menstrual period was 12/28/2023. patient of Dr. Lancaster. Patient denies any vaginal bleeding or discharge. Reports [address] appointment [address]. Lancaster on Wednesday. CBC showed no leukocytosis, no anemia, chemistry showed no electrolyte imbalance, normal renal function, beta hCG trending up from from previous visits. On today's visits beta-hCGs 1159. Ob ultrasound revealed no IUP seen at this time. Patient with no vaginal bleeding. Based on a HCG and last menstrual. This may be related to early . Patient instructed to follow up with Dr. Lancaster on Wednesday. Extensive education given to patient to return if symptoms worsen. Patient agrees with discharge planning patient with a nontender abdomen. Reports pain relieved with Tylenol. Differential diagnosis: Ectopic , intrauterine , UTI, electrolyte imbalance Need for hospitalization: Patient does not meet criteria for hospitalization. There are no social concerns with this patient. DX & DISP Disposition: Discharge Departure Impression: Primary Impression: Abdominal pain Additional Impressions: Positive test, Abdominal cramping Condition: Stable Additional Instructions: Please follow up with Dr. Lancaster on Wednesday. Please return to the ER if vaginal bleeding or severe abdominal pain, syncope develop. FOLLOW-UP WITH PRIMARY CARE PROVIDER IN 1 TO 2 DAYS. TAKE MEDICATIONS DIRECTED HERE IN THE EMERGENCY ROOM. OKAY TO CONTINUE HOME MEDICATIONS UNLESS OTHERWISE DISCUSSED DURING YOUR VISIT IN THE EMERGENCY ROOM TODAY. RETURN TO YOUR NEAREST EMERGENCY ROOM IF SYMPTOMS WORSEN OR IF THERE IS NO IMPROVEMENT. CALL 911 IF YOU NEED IMMEDIATE ASSISTANCE. TAKE TYLENOL [id number] NEEDED AND IF NO CONTRAINDICATIONS ARE PRESENT. INCREASE ORAL HYDRATION. A WOUND CULTURE OR URINE CULTURE WAS ORDERED HERE IN THE EMERGENCY ROOM DEPARTMENT PLEASE FOLLOW-UP WITH PRIMARY CARE PROVIDER AND ADVISE THEM TO GET REPEAT PORTS FROM OUR FACILITY. IF YOU HAD ANY JENNIFER WRAP/SPLINTS THAT WERE APPLIED HERE, PLEASE DO NOT REMOVE THEM UNTIL YOU SEE YOUR PRIMARY CARE OR SPECIALTY. Referrals: ANDRIA LA MD (PCP) Time of Disposition: 22:59 I have reviewed the case, and I agree with, Diagnosis and Plan YOLETTE PEÑA DIFFUSION FURNACE OPERATOR Feb 03, 2024 21:31
--- NOTE | 2024-02-03 22:30 | HMCIMG ---
US OB <14 WEEKS HISTORY: Pain COMPARISON: None TECHNIQUE: Obstetrical ultrasound study was performed. FINDINGS: The uterus measures 8 x 4 x 6 centimeter. Right ovary measures 3 x 1 x 3 centimeter. Left ovary measures 3 by 2 x 2 centimeter. No evidence of intrauterine gestational sac is seen. In a patient with positive test, differential diagnosis would include early versus ectopic versus missed . Beta-hCG correlation is recommended. Flow is seen of both ovaries. No fluid is seen in the cul-de-sac. IMPRESSION: 1. There is intrauterine saclike structure. In a patient with positive test, differential diagnosis would include early versus ectopic versus missed . Estimated gestational age by sac size is beta-hCG correlation is recommended.
[2024-02-03 23:23] VITALS: BP 140/68; PULSE 85; RESP 20; TEMP 98.8; O2SAT 99
== END 2024-02-03 23:24 | disposition home or self-care (01) ==
LOC: EDH 20:15
DX: O26.899 Other specified pregnancy related conditions, unspecified trimester (principal); R10.2 Pelvic and perineal pain; Z32.01 Encounter for pregnancy test, result positive; J45.909 Unspecified asthma, uncomplicated; Z79.899 Other long term (current) drug therapy; Z3A.00 Weeks of gestation of pregnancy not specified
CPT/HCPCS: 99284; 96360; 76801; 80048; 84702; 83690; 85025; 36415; J7030